=== PATIENT | female | born 1965 | race African-American/Black ===

== ENCOUNTER 2017-05-10 12:31 | Emergency (ER) | payer OTHER ==
[~2017-05-10] VITALS: Ht 180.3 cm; Wt 107.0 kg
[2017-05-10 12:39] VITALS: BP 140/86
== END 2017-05-10 16:45 | disposition left against medical advice (07) ==
LOC: ER 12:52
DX: M79.629 Pain in unspecified upper arm (principal); Z53.21 Procedure and treatment not carried out due to patient leaving prior to being seen by health care provider